=== PATIENT | female | born 1965 | race Caucasian/White ===

== ENCOUNTER → 2021-02-01 | Outpatient (CLI) | payer BC ==
[~2021-02-01] MED LIST: ASCO500T8 PO; ASPI81TA45 PO; ATOR-2 PO; CHOL100012 PO; FISH1CAP PO; MULT-449 PO; ZINC50CA PO
[2021-02-01 14:54] LABS: BASOPHILS % (AUTO) 1 % (0-1); EOSINOPHILS % (AUTO) 2 % (1-7); LYMPHOCYTES % (AUTO) 30 % (22-44); MEAN CORPUSCULAR HEMOGLOBIN 33.5 pg (27.0-34.8); MEAN CORPUSCULAR HGB CONC 34.5 g/dL (32.4-35.8); MEAN PLATELET VOLUME 8.6 fL (7.4-10.4); MONOCYTES % (AUTO) 8 % (2-9); NEUTROPHILS % (AUTO) 60 % (42-75); PLATELET COUNT 228 x10^3/uL (130-400); RED BLOOD COUNT 4.83 x10^6/uL (3.82-5.3); RED CELL DISTRIBUTION WIDTH 12.8 % (9.6-15.2)
[2021-02-01 15:05] LABS: ALANINE AMINOTRANSFERASE 73 U/L (12-78); ALBUMIN 3.6 g/dL (3.4-5.0); ANION GAP 7 mmol/L (5-15); CALCIUM 8.8 mg/dL (8.5-10.1); CHLORIDE 109 mmol/L (98-107); CREATININE 0.62 mg/dL (0.55-1.02)
[2021-02-01 15:07] LABS: ALKALINE PHOSPHATASE 126 U/L (45-117); BILIRUBIN,TOTAL 0.2 mg/dL (0.2-1.0)
[2021-02-01 15:30] LABS: MD NO
== END | disposition home or self-care (01) ==
LOC: STAR 13:41
PROVIDERS: ATTEND Surgery
DX: Z01.818 Encounter for other preprocedural examination (principal); Z20.822 Contact with and (suspected) exposure to COVID-19
CPT/HCPCS: 36415; 71046; 80053; 85025; 93005; U0003

== ENCOUNTER 2021-02-07 11:22 | Observation (INO) | payer BC, OTHER ==
[~2021-02-07] VITALS: Ht 165.1 cm; Wt 112.0 kg
[2021-02-07] MEDS ORDERED: BUPIVACAINE/PF 0.5% ONE (11:41)
[2021-02-07] MEDS ORDERED: EPINEPHRINE 1 MG/ML, 1ML ONE (11:41)
[2021-02-07] MEDS ORDERED: PAPAVERINE 30 MG/ML, 2ML ONE (11:41)
[2021-02-07] MEDS ORDERED: THROMBIN 20,000 UNIT VIAL TP ONE (11:41)
[2021-02-07] MEDS ORDERED: PROTAMINE SULFATE 10 MG/ML, 25ML ONE (11:41)
[2021-02-07] MEDS ORDERED: HEPARIN 1,000 UNITS/ML, 30ML ONE (11:41)
[2021-02-07] MEDS ORDERED: CHLORHEXIDINE 15 ML UDC MM ONE (12:00)
[2021-02-07] MEDS ORDERED: LACTATED RINGERS 1,000 ML IV SCH (12:00)
[2021-02-07] MEDS ORDERED: ASPIRIN 81 MG TABLET EC ONE (13:15)
[2021-02-07] MEDS ORDERED: MIDAZOLAM 1 MG/ML, 2ML ONE (13:24)
[2021-02-07] MEDS ORDERED: FENTANYL PF 250 MCG/5ML ONE (13:24)
[2021-02-07] MEDS ORDERED: ROCURONIUM 10 MG/ML,10ML ONE (13:25)
[2021-02-07] MEDS ORDERED: PROPOFOL 10 MG/ML, 20ML ONE (13:25)
[2021-02-07] MEDS ORDERED: CEFAZOLIN 1,000 MG ONE (13:25)
[2021-02-07] MEDS ORDERED: DEXAMETHASONE 4 MG/ML, 1ML ONE (13:25)
[2021-02-07] MEDS ORDERED: ONDANSETRON 2MG/ML, 2ML ONE (13:25)
[2021-02-07] MEDS ORDERED: ASPIRIN 81 MG TABLET EC PO ONE (13:30)
[2021-02-07] MEDS ORDERED: LIDOCAINE 1%, 10ML ONE (13:43)
[2021-02-07] MEDS ORDERED: HEPARIN 1,000 UNITS/ML, 1ML IV ONE (14:14)
[2021-02-07] MEDS ORDERED: ONDANSETRON 2MG/ML, 2ML IVPush PRN ×2 (15:00→17:30)
[2021-02-07] MEDS ORDERED: LABETALOL 5MG/ML, 20ML IV PRN (15:00)
[2021-02-07] MEDS ORDERED: PROMETHAZINE 25 MG/ML, 1ML IVPush PRN (15:00)
[2021-02-07] MEDS ORDERED: HYDROmorphone 1 MG/ML, 1ML INJ IVPush PRN (15:00)
[2021-02-07] MEDS ORDERED: hydrALAzine 20 MG/ML, 1ML IV PRN (15:00)
[2021-02-07] MEDS ORDERED: ACETAMINOPHEN 325 MG TABLET PO PRN (15:00)
[2021-02-07] MEDS ORDERED: METHOCARBAMOL 1,000 MG in DEXTROSE 5% 100 ML IV PRN (15:00)
[2021-02-07] MEDS ORDERED: OXYcodone 5 MG/5 ML ORAL.SOL UDC PO PRN (15:00)
[2021-02-07] MEDS ORDERED: LORazepam 2 MG/ML, 1ML IVPush PRN (15:00)
[2021-02-07] MEDS ORDERED: PROMETHAZINE 25 MG SUPP PR PRN (15:00)
[2021-02-07] MEDS ORDERED: SUGAMMADEX 200 MG/2 ML IVPush ONE (15:02)
[2021-02-07] MEDS ORDERED: FENTANYL PF 100 MCG/2ML ONE (16:20)
[2021-02-07] MEDS ORDERED: OXYcodone 5 MG/5 ML ORAL.SOL UDC ONE (16:21)
[2021-02-07] MEDS: FENTANYL PF 100 MCG/2ML IV PRN ×2 (16:25→16:30)
[2021-02-07 19:12] VITALS: BP 116/79
[2021-02-07] MEDS: LACTATED RINGERS 1,000 ML IV SCH (19:26)
[2021-02-07] MEDS: HYDROcodone/APAP 5/325 TABLET PO PRN (19:48)
[2021-02-07] MEDS: OMEGA-3/FISH OIL CAPSULE PO SCH (19:49)
[2021-02-07] MEDS: ATORVASTATIN 80 MG TABLET PO SCH (19:49)
[2021-02-07] MEDS: SODIUM CHLORIDE FLUSH 10ML SYR IVF SCH (19:49)
[2021-02-08] MEDS: HYDROcodone/APAP 5/325 TABLET PO PRN ×5 (00:11→22:31)
[2021-02-08 00:18] VITALS: BP 105/67
[2021-02-08 03:55] VITALS: BP 106/68
[2021-02-08] MEDS: LACTATED RINGERS 1,000 ML IV SCH (06:00)
[2021-02-08 07:09] VITALS: BP 113/73
[2021-02-08] MEDS: MULTIVITAMIN 1 TABLET PO SCH (08:17)
[2021-02-08] MEDS: CHOLECALCIFEROL 1,000 UNIT TABLET PO SCH (08:17)
[2021-02-08] MEDS: ASPIRIN 81 MG TABLET CHEW PO SCH (08:17)
[2021-02-08] MEDS: SODIUM CHLORIDE FLUSH 10ML SYR IVF SCH ×2 (08:17→20:19)
[2021-02-08] MEDS: ZINC SULFATE 220 MG CAPSULE PO SCH (08:17)
[2021-02-08] MEDS: OMEGA-3/FISH OIL CAPSULE PO SCH ×3 (08:17→20:20)
[2021-02-08] MEDS: ASCORBIC ACID 500 MG TABLET PO SCH (08:17)
[2021-02-08 13:19] VITALS: BP 113/67
[2021-02-08] MEDS: HEPARIN 5,000 UNITS/ML, 1ML SQ SCH (20:19)
[2021-02-08] MEDS: ATORVASTATIN 80 MG TABLET PO SCH (20:20)
[2021-02-08 20:32] VITALS: BP 124/79
[2021-02-09 02:41] VITALS: BP 128/84
[2021-02-09] MEDS: HEPARIN 5,000 UNITS/ML, 1ML SQ SCH ×2 (04:31→12:30)
[2021-02-09 07:31] VITALS: BP 155/89
[2021-02-09] MEDS: CHOLECALCIFEROL 1,000 UNIT TABLET PO SCH (08:13)
[2021-02-09] MEDS: ASCORBIC ACID 500 MG TABLET PO SCH (08:13)
[2021-02-09] MEDS: ZINC SULFATE 220 MG CAPSULE PO SCH (08:13)
[2021-02-09] MEDS: ASPIRIN 81 MG TABLET CHEW PO SCH (08:14)
[2021-02-09] MEDS: MULTIVITAMIN 1 TABLET PO SCH (08:14)
[2021-02-09] MEDS: OMEGA-3/FISH OIL CAPSULE PO SCH (08:14)
[2021-02-09] MEDS: SODIUM CHLORIDE FLUSH 10ML SYR IVF SCH (08:15)
[2021-02-09] MEDS ORDERED: DOCU-131 PO (10:40)
[2021-02-09] MEDS ORDERED: HYDR-2214 PO (10:40)
[2021-02-09 12:26] VITALS: BP 140/74
== END 2021-02-09 12:52 | disposition home or self-care (01) ==
LOC: OUT 11:22 → 4NE 16:53 → OUT 23:21 → DCLOUNGE 02-09 12:44
PROVIDERS: ADMIT Surgery; ATTEND Surgery
DX: I70.0 Atherosclerosis of aorta (principal); I74.09 Other arterial embolism and thrombosis of abdominal aorta; E66.9 Obesity, unspecified; E11.9 Type 2 diabetes mellitus without complications; D69.6 Thrombocytopenia, unspecified; E78.2 Mixed hyperlipidemia; D58.2 Other hemoglobinopathies; F17.210 Nicotine dependence, cigarettes, uncomplicated; Z79.899 Other long term (current) drug therapy; Z90.710 Acquired absence of both cervix and uterus; Z79.82 Long term (current) use of aspirin
CPT/HCPCS: 34701; 34812; 82962; 96361; 96372; 96374; 97161; C1725; C1751; C1768; C1769; C1894; G0378; J0690; J1100; J1644; J2250; J2405; J2704; J3010; J3490; J7120; J0171; J2720; J2440